=== PATIENT | female | born 1945 | race Caucasian/White ===

== ENCOUNTER → 2018-08-17 16:35 | Outpatient (CLI) | payer MEDICARE, OTHER | END | disposition home or self-care (01) | LOC: D.LABREF 16:35 | DX: M16.11 Unilateral primary osteoarthritis, right hip (principal) ==

== ENCOUNTER → 2018-08-27 12:34 | Outpatient (CLI) | payer MEDICARE, OTHER, BC ==
--- NOTE | ~2018-08-27 | HEMODYNAMI ---
PATIENT:GO DONG MEDICAL RECORD: [id number] : 47 LOCATION:[facility] ADMISSION DATE: 08/27/18 Generatedon:08/27/201814:08 Patient name: GO DONG Patient #: [id number] SSN: : 1945 Date of study: 08/27/2018 Page: Of Hemodynamic Procedure Report Patient Data Patient Demographics Procedure consent was obtained First Name: GO Gender: Female Last Name: IKER : 1945 Patient #: [id number] Age: 72 year(s) Race: Unknown Additional ID: [id number] Contact details [address] [address] [place] [address] [address] State: [place] City: [place] Zip code: [address] Past Medical History Allergies: No known allergies Admission Admission Data Admission Date: 08/27/2018 Admission Time: 12:34 Procedure Procedure Types Cath Procedure Peripheral Cath Diagnostic Procedure Miscellaneous Procedure Description Procedure Date Procedure Date: 08/27/2018 Procedure Start Time: 13:57 Procedure Staff Name Function Noel Sagastume MD Performing Physician Donell Sanchez RT Monitor Candy Booth RN Nurse Shirley Martin RN Nurse Procedure Data Cath Procedure Fluoroscopy Diagnostic fluoroscopy Total fluoroscopy Time: 0.4 time: 0.4 min min Hemodynamics Rest Pre Cath Intra NCS Post Cath Procedure Log Time Note 13:48:41 Donell Sanchez RT (R) (CV) sent for patient. Start room use. 13:48:51 Time tracking: Regular hours (M-F 7:00 - 5:00) 13:48:57 Patient received from Outpatients to IR Alert and oriented. Tansferred to table in Supine position. 13:48:58 Correct patient and procedure confirmed by team. 13:49:02 Signed procedure consent form obtained from patient. 13:49:05 - 13:49:06 Pre-procedure instructions explained to patient. 13:49:06 Pre-op teaching completed and patient verbalized understanding. 13:49:08 Family in waiting room. 13:49:19 Patient allergic to No known allergies 13:49:25 Is patient on blood thinner?No 13:49:34 Right hip was prepped with betadine and draped in sterile fashion. 13:56:41 Physician arrived 13:56:42 --------ALL STOP TIME OUT------ 13:56:42 Final Timeout: patient, procedure, and site verified with staff and physician. All members of the team are in agreement. 13:56:47 Right groin site verified by team. 13:56:55 Sedation plan: Local Anesthetic Medication:Lidocaine 13:57:03 Procedure started. 13:57:03 Full Disclosure recording started 13:57:07 Local anesthetic to right hip with Lidocaine 1% by Noel Sagastume MD.INITIAL ACCESS ONLY 13:57:38 SAFE-T PLUS MYELOGRAM TRAY opened to sterile field. 14:06:14 Procedure ended.(Physican Out) 14:06:26 Fluoroscopy time 00.40 minutes. 14:06:42 bandaide applied sight normal 14:07:34 pt will wait in waiting room for 15 min post procedure if pt fine at en d of that time pt will be sent hom3 Device Usage Item Name Manufacture Quantity Catalog Hospital Part Current Minimal Lot# / Number Charge Number Stock Stock Serial# Code SAFE-T [employer] 1 [id number] PLUS MYELOGRAM TRAY Signature Audit [place] Stage Time Signature Unsigned Intra-Procedure 08/27/2018 Donell 2:08:09 PM Daniel RT (R) (CV) Signatures Monitor : Donell Signature : Daniel RT Date : Time : [facility] [address] [place] [address]
== END | disposition home or self-care (01) ==
LOC: D.SP 12:34 → D.RAD 13:00
DX: M25.551 Pain in right hip (principal); Z01.812 Encounter for preprocedural laboratory examination